=== PATIENT | male | born 1955 | race Two or more races ===

== ENCOUNTER → 2019-04-07 | Emergency (ER) | payer SELFPAY ==
[~2019-04-07] VITALS: Ht 167.6 cm; Wt 65.0 kg
[~2019-04-07] MED LIST: ACETAMINOPHEN WITH CODEINE 300/30MG TABLET PO ONE; BACITRACIN 15GM TUBE TOP SCH; BACITRACIN ZINC OINT UDPKT TOP NR; BACITRACIN ZINC OINT UDPKT TOP ONE; TETANUS, DIPHTHERIA, PERTUSSIS VAC/PF 0.5ML (>7YR OLD) IM ONE
[2019-04-07 23:46] LABS: BASOPHILS % 0.6 % (0.0-2.0); HEMATOCRIT. 41.3 % (42.0-52.0); MEAN CORPUSCULAR HEMOGLOBIN 30.5 pg (28.0-32.0); MEAN CORPUSCULAR VOLUME 90.1 fL (80.0-94.0); MEAN PLATELET VOLUME 9.2 fl (7.4-10.4); MONOCYTES % 5.7 % (2.0-8.0); NEUTROPHILS % 74.7 % (40.0-76.0); PLATELET 155 x1000/uL (130-400); RED BLOOD CELL COUNT 4.58 mill/uL (4.7-6.1); RED CELL DISTRIBUTION WIDTH 13.3 % (11.6-14.6)
[2019-04-07 23:48] LABS: CHLORIDE 99 mEq/L (98-107)
[2019-04-07 23:49] LABS: PROTHROMBIN TIME 10.7 sec (9.6-11.0)
[2019-04-07 23:54] LABS: ETHANOL BLOOD 263 mg/dL
[2019-04-08 03:02] LABS: *AMPHETAMINES SCREEN URINE NEGATIVE (NEGATIVE); *BARBITURATES SCREEN URINE NEGATIVE (NEGATIVE); *BENZODIAZEPINES SCREEN URINE NEGATIVE (NEGATIVE)
[2019-04-08 03:03] LABS: *COCAINE SCREEN URINE NEGATIVE (NEGATIVE); CANNABINOID URINE SCREEN NEGATIVE (NEGATIVE); METHADONE URINE SCREEN NEGATIVE (NEGATIVE); OPIATES URINE SCREEN PRESUMTIVE POSITIVE (NEGATIVE); PHENCYCLIDINE URINE SCREEN NEGATIVE (NEGATIVE)
[2019-04-08 12:30] VITALS: BP 117/75
== END | disposition home or self-care (01) ==
LOC: ER 21:39
DX: T51.0X1A Toxic effect of ethanol, accidental (unintentional), initial encounter (principal); S00.01XA Abrasion of scalp, initial encounter; R51 Headache; Z59.0 Homelessness; W18.39XA Other fall on same level, initial encounter; Y93.89 Activity, other specified; Y99.8 Other external cause status; Y92.89 Other specified places as the place of occurrence of the external cause
CPT/HCPCS: 36415; 80320; 90471; 90715; 99284; G0480